=== PATIENT | female | born 1950 | race Caucasian/White ===

== ENCOUNTER 2016-07-10 11:35 | Inpatient (IN) | payer MEDICARE ==
[~2016-07-10] VITALS: Ht 162.6 cm; Wt 60.5 kg
[2016-07-10] VITALS (8 sets, daily range): BP systolic 125–156; BP diastolic 78–91; PULSE 59–88; RESP 12–17; O2SAT 93–100
--- NOTE | 2016-07-10 11:52 | ED.REPORT ---
HPI-General Illness Date of Service July 10, 2016 ED Provider: DaljitKirill Adalid DO 66 y/o female with no reported hx presents to the ED vis EMS due to LOC. As per the EMS, the pt was found on the floor by her friend and had been incontinent. Pt was alert to self, time and place but confused on what happened prior to LOC. The EMS also noticed minimal food in her house, piles of stool around the house and a couple of eviction notices. She is severely disoriented, emaciated, dehydrated and malodorous. The pt was recently seen at [facility] for GI bleed. Pt is currently prescribed Famotidine 20mg Nursing Notes Stated Complaint: FAILURE TO THRIVE Chief Complaint: General Complaint Nursing Notes Reviewed: Yes Allergies: Coded Allergies: No Known Allergies (Unverified , 07/10/16) General Time Seen by MD: 11:51 Chief Complaint Other (LOC) Hx Obtained From: Patient Arrived By: Ambulance Sudden in Onset?: Yes Onset Occurred: Just prior to arrival Symptom Duration: Since onset Severity: Current: No pain currently Severity: Maximum: No pain Recent Healthcare: No recent doctor visit Similar Sx Previous: No Past Medical History Past Medical History none reported Past Surgical History none reported Smoking History Current Every Day Smoker Social History Alcohol Use: 1-3 per day Ambulatory Status Independent Review of Systems Unable to Obtain ROS Mental status Full Review of Systems Neurologic: Denies: Problem walking Complete sys rev & neg: except as marked. Physical Exam Vital Signs Vital Signs Date Time Temp Pulse Resp B/P Pulse Ox O2 Delivery O2 Flow Rate FiO2 07/10/16 14:18 70 16 140/79 100 Room Air 07/10/16 12:56 36.3 72 17 156/80 100 Room Air 07/10/16 12:32 86 12 146/78 99 Room Air 07/10/16 11:45 36.4 88 15 145/91 93 Room Air Initial VS: Reviewed Neck: Supple, Non-tender, Full range of motion Respiratory: Breath sounds normal, Clear to auscultation, No respiratory distress Cardiovascular: Regular rate & rhythm, Heart sounds normal, Intact distal pulses Abdomen / GI: Soft, Non-tender, No guarding, No rebound, No distention Extremities: Vascular intact, Neuro intact, No swelling, No tenderness Skin: Warm, Dry, No cyanosis General/Constitutional: Awake, Cooperative Alertness: Positive: Confused Distress / Hydration: Positive: Dehydration severe Head / Eyes: Atraumatic, Normocephalic, PERRL Uncooperative for extraocular movement exams. Abdomen: Atraumatic, Soft, Non-tender, No guarding, No rebound Rectum / Perineum: Atraumatic Positive guaiac. Neurologic: Oriented X3, Speech NL, No motor deficits, No sensory deficits No Asterixis NIH scale = 0 Psychiatric: Not suicidal, Not homicidal Odd affect Interpretation & Diagnostics Lab Results Interpretation Result Diagram: 07/10/16 1403 07/10/16 1233 Test 07/10/16 12:33 07/10/16 12:45 07/10/16 13:00 07/10/16 14:03 White Blood Count 9.9th/mm3 (3.8-10.1) Red Blood Count 5.41mil/mm3 (3.90-5.20) Mean Corpuscular Volume 98.2fL (81-100) Mean Corpuscular Hemoglobin 35.1pg (27.0-35.0) Mean Corpuscular Hemoglobin Concent 35.8% (32.0-37.0) Red Cell Distribution Width 14.3% (12.3-15.4) Platelet Count 282bil/L (150-400) Neutrophils (%) (Auto) 91.1% (40-74) Lymphocytes (%) (Auto) 5.2% (14-46) Monocytes (%) (Auto) 3.2% (4-12) Eosinophils (%) (Auto) 0% (0-5) Basophils (%) (Auto) 0.2% (0-3) Prothrombin Time 10.0sec (8.1-12.5) Prothromb Time International Ratio 0.94ratio Sodium Level 142mEq/L (134-144) Potassium Level 2.7mEq/L (3.5-5.2) Chloride Level 101mEq/L (97-108) Carbon Dioxide Level 17mmol/L (18-29) Blood Urea Nitrogen 40mg/dL (8-27) Creatinine 0.60mg/dL (0.57-1.00) Estimat Glomerular Filtration Rate 142mL/min (>59) Glucose Level 149mg/dL (60-99) Lactic Acid Level 2.5mmol/L (0.4-2.0) Calcium Level 8.9mg/dL (8.5-10.1) Magnesium Level 1.8mg/dL (1.6-2.6) Total Bilirubin 1.0mg/dL (0.0-1.2) Aspartate Amino Transf (AST/SGOT) 32U/L (0-50) Alanine Aminotransferase (ALT/SGPT) 27U/L (0-32) Alkaline Phosphatase 104U/L (25-165) Ammonia 37ug/dL (18-53) Total Creatine Kinase 54U/L (21-215) Troponin T < 0.010ug/L (0.0-0.011) Total Protein 6.1g/dL (6.4-8.4) Albumin 3.2g/dL (3.4-5.0) Procalcitonin 0.06ng/mL (0.00-0.08) Thyroid Stimulating Hormone (TSH) 0.972uIU/mL (0.450-4.500) Alcohols < 10mg/dL (0-10) Urine Color Lynda (YELLOW) Urine Appearance Clear (CLEAR,HAZY) Urine pH 6.0 (5.0-8.0) Urine Specific [place] 1.025 (1.003-1.035) Urine Protein Tracemg/dL (NEG,TRACE) Urine Glucose (UA) Negativemg/dL (NEGATIVE) Urine Ketones 40mg/dL (NEGATIVE) Urine Occult Blood Trace (NEGATIVE) Urine Nitrite Negative (NEGATIVE) Urine Bilirubin Negative (NEGATIVE) Urine Ictotest Negative (Negative) Urine Urobilinogen Normalmg/dL (NORMAL) Urine Leukocyte Esterase Negative (NEGATIVE) Urine RBC 0-2/hpf (0-2) Urine WBC 0-5/hpf (0-5) Urine Epithelial Cells Many/hpf (NONE-MOD) Urine Crystals None seen (NONE SEEN) Urine Bacteria Few/hpf (NONE-FEW) Urine Hyaline Casts 5/20/lpf (NONE) Urine Granular Casts None seen (NONE SEEN) Urine Waxy Casts None seen (NONE SEEN) Urine Red Blood Cell Casts None seen (NONE SEEN) Urine White Blood Cell Casts None seen (NONE SEEN) Urine Mucus Present (None Seen) Urine Trichomonas None seen (NONE SEEN) Urine Yeast None (NONE SEEN) Urinalysis Comment None Urine Culture Reflexed Not indicated Hemoglobin 16.1g/dL (12.0-15.6) Hematocrit 47.2% (35.0-46.0) ECG Interpretation ECG Interpretation: Normal sinus rhtyhm. Rate 70. Probable left atrial enlargement. Time: 12:26 Interpreted by: ED physician X-Ray Chest Interpretation Chest Xray Interpretation: IMPRESSION: No acute process. Dictated by: Charbel Alcantar M.D. on 07/10/2016 at 13:20 Approved by: Charbel Alcantar M.D. on 07/10/2016 at 13:21 View: Portable, 1 view Interpretation / Wet Read by: Interpret - Radiologist CT Head Interpretation IMPRESSION: No acute intracranial abnormality. Dictated by: Charbel Alcantar M.D. on 07/10/2016 at 12:30 Approved by: Charbel Alcantar M.D. on 07/10/2016 at 12:30 Study: Head CT no contrast Interpretation / Wet Read by: Interpret - Radiologist Re-Eval/Medical Decision Med Decision/Clinical Course Continued confusion, appears to be severely dehydrated. Does not appear to be meningitis, no obvious other septic or infectious parameters. Patient does have brown stool with a positive guaiac, may have some GI bleeding. Patient will be admitted. Time of Eval: 14:04 Re-Evaluation/Progress Note: Pt rechecked. Pt is still disoriented and confused. Counseled Regarding: Diagnosis, Lab results, Need for admission Discharge & Departure Primary Impression: Confusion Additional Impressions: Dehydration Hypokalemia GI bleed Disposition: ADMITTED TO HOSPITAL Discharge Condition All VS Reviewed: Yes Referrals: [facility] Scribe Attestation Portions of this note were transcribed by Nelly Smith. I, , personally performed the history, physical exam and medical decision-making;I reviewed and confirmed the accuracy of the information in the transcribed note. Signed by Nikko Mayer. 07/10/16 TIME copies to: [facility] Kirill Bocanegra DO July 10, 2016 11:52 Nelly Smith July 10, 2016 12:10
[2016-07-10] MEDS ORDERED: 0.9% Sodium Chloride 1,000 ML IV ONE (11:59)
[2016-07-10] MEDS ORDERED: 0.9% Sodium Chloride 500 ML IV ONE (12:00)
--- NOTE | 2016-07-10 12:31 | DRSVH ---
PROCEDURE: CT BRAIN WITHOUT CONTRAST ([id number]) INDICATIONS: AMS TECHNIQUE: Noncontrast 4.5 mm thick angled axial sections acquired from the foramen magnum to the vertex, with c oronal reformats. COMPARISON: None. FINDINGS: Image quality: Excellent. CSF spaces: Basal cisterns are patent. No extra-axial fluid collections. The ventricles are symmet jesse in size and shape. Brain: No intracranial bleeds or masses. There is cerebral volume loss for age, with resultant vent ricular and sulcal prominence. There are periventricular and deep white matter chronic small vessel ischemic changes. There is intracranial internal carotid artery atherosclerosis. Skull and face: Calvarium and visualized facial bones appear intact, without suspicious lesions. Sinuses: Visualized sinuses and mastoids are clear. IMPRESSION: No acute intracranial abnormality. Dictated by: Charbel Alcantar M.D. on 07/10/2016 at 12:30 Approved by: Charbel Alcantar M.D. on 07/10/2016 at 12:30
[2016-07-10 12:49] LABS: BASOPHILS % (AUTO) 0.2 % (0-3); EOSINOPHILS % (AUTO) 0 % (0-5); MONOCYTES % (AUTO) 3.2 % (4-12); Mean Corpuscular Hemoglobin 35.1 pg (27.0-35.0); Mean Corpuscular Volume 98.2 fL (81-100); NEUTROPHILS % (AUTO) 91.1 % (40-74); Platelet Count 282 bil/L (150-400)
[2016-07-10 13:06] LABS: INR 0.94 ratio
--- NOTE | 2016-07-10 13:22 | DRSVH ---
PROCEDURE: X-RAY CHEST ONE VIEW, PORTABLE ([id number]) INDICATIONS: weakness TECHNIQUE: One view of the chest was acquired. COMPARISON: None. FINDINGS: Surgical changes and devices: None. Lungs and pleura: No pleural effusions or pneumothorax. Lungs are clear. Mediastinum: Mediastinal contours appear normal. Heart size is normal. Bones and chest wall: No suspicious bony lesions. Overlying soft tissues appear unremarkable. IMPRESSION: No acute process. Dictated by: Charbel Alcantar M.D. on 07/10/2016 at 13:20 Approved by: Charbel Alcantar M.D. on 07/10/2016 at 13:21
[2016-07-10 13:27] LABS: TROPONIN T < 0.010 ug/L (0.0-0.011)
[2016-07-10 13:34] LABS: Creatine Kinase 54 U/L (21-215); Magnesium 1.8 mg/dL (1.6-2.6)
[2016-07-10 13:41] LABS: COLOR,URINE AMBER (YELLOW)
[2016-07-10 13:42] LABS: APPEARANCE,URINE CLEAR (CLEAR,HAZY); OCCULT BLOOD,URINE TRACE (NEGATIVE); UROBILINOGEN,URINE NORMAL (NORMAL)
[2016-07-10 13:43] LABS: ICTOTEST,URINE NEGATIVE (Negative)
[2016-07-10] MEDS ORDERED: Potassium Chloride 20 mEq/15 mL 15mL Oral Soln PO ONE (13:45)
[2016-07-10] MEDS ORDERED: KCl 40 mEq/D5W 500 mL 40 MEQ in IV Premix 1 EACH IV ONE (13:45)
[2016-07-10] MEDS ORDERED: 0.9% Sodium Chloride 1,000 ML IV SCH ×2 (13:45→14:49)
[2016-07-10] MEDS ORDERED: Pantoprazole 4 mg/mL 10 mL Inj IVPUSH ONE (14:00)
[2016-07-10] MEDS ORDERED: Pantoprazole Inj 80 MG, Pharmacy To Mix 1 EA in 0.9% Sodium Chloride 80 ML IV ONE ×2 (14:00)
[2016-07-10] MEDS ORDERED: Ondansetron 2 mg/mL 2 mL Inj IVPUSH PRN ×2 (14:50→16:45)
[2016-07-10] MEDS ORDERED: Alum-Mag Hydrox-Simeth 30 mL Suspension PO PRN ×2 (14:50→16:45)
[2016-07-10] MEDS ORDERED: FAMO20TA4 PO (15:07)
[2016-07-10] MEDS ORDERED: ALBU18HF PO (15:07)
[2016-07-10] MEDS ORDERED: Polyethylene Glycol (PEG) 17 Gm Powder PO PRN (16:45)
[2016-07-10] MEDS: Lactated Ringer's 1,000 ML IV SCH ×2 (16:45→23:40)
[2016-07-10] MEDS ORDERED: Thiamine Inj 100 MG, Folic Acid Inj 1 MG, Magnesium Sulfate 50% Inj 2 GM, Multivitamins... IV ONE ×5 (16:45)
[2016-07-10] MEDS ORDERED: Potassium Chloride 20 mEq SR Tablet PO ONE (16:45)
--- NOTE | 2016-07-10 17:04 | PCM.HPMED ---
Subjective Date of Service July 10, 2016 Primary Provider: Admitting Physician: Augie Campuzano MD Primary Care Physician: Nopcp Attending Physician: Augie Campuzano MD Chief Complaint: confusion History of Present Illness: 66yo lady with no reported medical hx. hx obtained from available medical records, er physician, bedside nurse, patient apparently neighbours called bc they were concerned about her. ems arrived to the house to find her crawling on the floor with feces around the floor. there was apparently minimal food in the house and eviction notices. she tells me she feels weak and fell 3 weeks ago and has b/l hip pain but can walk ok with a walker. she is not sure why she is here now. she is concerned about where her dog is. she denies h/a, neck pain, n/v/d, abd pain, fevers, chills, dyspnea, cough, recent illness. feels thirsty. she tells me she drinks white whine daily. multiple times. asking if she could have some now. Review of Systems: Positive Review of Symptoms mentioned and elaborated on in HPI. Head: Denies H/A, trauma, loss of consciousness. Eyes: Denies visual loss, diplopia. Ears: Denies: deafness, tinnitis, discharge, pain Nose: Denies discharge, obstruction, epistaxis Mouth: Denies sores, gingival bleeding, jaw pain Neck: Denies stiffness, issues swallowing. Respiratory: Denies dyspnea, cough, sputum. Cardiovascular:Denies CP, palpitations, orthopnea, peripheral edema Gastrointestinal: Denies melena, abd pain, n/v/d Genitourinary: Denies dysuria, discharge. Skin: Denies: lesions, rashes, pruritus. Musculoskeletal: see hpi Neuro: Denies numbness, tingling, weakness. Psyc: Currently denies feelings of anxiety, depression. Allergies Coded Allergies: No Known Allergies (Unverified , 07/10/16) Home Medications see med rec PMH denies Surgical History denies Family History denies Social History Hx Alcohol Use: Yes Alcoholic Drinks Per Day: 3 glasses of wine Hx Substance Use: No Smoking Status: Current Every Day Smoker Exam Vital Signs Vital Sign - Last Date Time Temp Pulse Resp B/P Pulse Ox O2 Delivery O2 Flow Rate FiO2 07/10/16 16:54 62 07/10/16 16:01 36.3 14 139/80 100 Room Air Exam General: No acute distress. Awake, alert. Head: Normocephalic, atraumatic. Eyes: White sclera. Conjunctiva non-injected. Mouth & Throat: No Bleeding. No erythema, lesions, exudates visualized. dry mucus membranes Neck: No tender adenopathy. Trachea midline. Respiratory: Clear to auscultation bilaterally. Symmetric chest expansion. Regular work of breathing without use of accessory muscles. Cardiovascular: S1, S2. Regular rate and rhythm without murmurs, rubs or gallops. Pulses 2+ equal bilaterally. Abdomen: Normal bowel sounds x4 quadrants. Soft, non-tender, non-distended. Extremities: Intact. no joint effusions. no lower extremity tenderness, swelling, erythema or increased warmth. some tenderness hips b/l. range of motion ok. Skin: Intact, no lesions, no rash. dry Neurologic: Awake, alert No focal deficits. Psychiatric: Cooperative. tangential. cannot say correct date or season of the year. knows her name not the exact location of the hospital or her home. can identify current president but not any others. not oriented to purpose. Lab and Diagnostics Result Diagram: 07/10/16 1403 07/10/16 1233 X-Rays, CTs and MRIs Date of Service: 07/10/16 3036 PROCEDURE: CT BRAIN WITHOUT CONTRAST ([id number]) INDICATIONS: AMS TECHNIQUE: Noncontrast 4.5 mm thick angled axial sections acquired from the foramen magnum to the vertex, with coronal reformats. COMPARISON: None. FINDINGS: Image quality: Excellent. CSF spaces: Basal cisterns are patent. No extra-axial fluid collections. The ventricles are symmetric in size and shape. Brain: No intracranial bleeds or masses. There is cerebral volume loss for age , with resultant ventricular and sulcal prominence. There are periventricular and deep white matter chronic small vessel ischemic changes. There is intracranial internal carotid artery atherosclerosis. Skull and face: Calvarium and visualized facial bones appear intact, without suspicious lesions. Sinuses: Visualized sinuses and mastoids are clear. IMPRESSION: No acute intracranial abnormality. Dictated by: Charbel Alcantar M.D. on 07/10/2016 at 12:30 Approved by: Charbel Alcantar M.D. on 07/10/2016 at 12:30 Date of Service: 07/10/16 8925 PROCEDURE: X-RAY CHEST ONE VIEW, PORTABLE ([id number]) INDICATIONS: weakness TECHNIQUE: One view of the chest was acquired. COMPARISON: None. FINDINGS: Surgical changes and devices: None. Lungs and pleura: No pleural effusions or pneumothorax. Lungs are clear. Mediastinum: Mediastinal contours appear normal. Heart size is normal. Bones and chest wall: No suspicious bony lesions. Overlying soft tissues appear unremarkable. IMPRESSION: No acute process. Dictated by: Charbel Alcantar M.D. on 07/10/2016 at 13:20 Approved by: Charbel Alcantar M.D. on 07/10/2016 at 13:21 Additional Diagnostics: hemocult reported to be + in er Assessment & Plan -- altered mental status -- dehydration -- electrolyte abdnormalities - hypoK -- alcoholism -- elevated lactic acid attempt to find and correct reversible causes of mental status changes. no obvious source / evidence of infection at this time cont to monitor. ivf. replete potassium ciwa protocol thiamine iv. rpr, hiv, folate, b12 mri brain further w/u, treatment as indicated. social service worker, case management consults. -- b/l hip pain xray pelvis, hips -- positive hemoccult reported in er cont to monitor cbc. no signs of active bleeding now. f/e/n: ivf. monitor electrolytes dispo: admit to inpt tele with expected LOS >2 midnights. VTE Prophylaxis: Sub-Q Enoxaparin VTE Mechanical Devices: Intermittant Pneumatic CD Resuscitation Status: CPR: Attempt Resuscitation Augie Campuzano MD July 10, 2016 17:04
--- NOTE | 2016-07-10 17:57 | DRSVH ---
PROCEDURE: X-RAY PELVIS WITH BILATERAL HIPS, 3 VIEWS INDICATIONS: bilateral hip pain TECHNIQUE: AP pelvis with lateral view(s) of the bilateral hip(s). COMPARISON: None. FINDINGS: Bones: No fractures or dislocations. Pelvic ring appears intact. No suspicious bony lesions. Soft tissues: The visualized bowel gas pattern is normal. No suspicious soft tissue calcifications. IMPRESSION: No acute fracture. No osseous lesion. If clinical suspicion and/or symptoms persist, fur ther assessment with repeat plainfilms, or advanced imaging (e.g., CT, MRI, or bone scan) may be help ful for further assessment. Dictated by: Charbel Alcantar M.D. on 07/10/2016 at 17:55 Approved by: Charbel Alcantar M.D. on 07/10/2016 at 17:55
[2016-07-10] MEDS: Thiamine Inj 500 MG in Dextrose 5% 50 ML IV SCH (20:47)
[2016-07-11] VITALS (7 sets, daily range): BP systolic 99–124; BP diastolic 61–78; PULSE 58–69; RESP 16–18; O2SAT 98–99
[2016-07-11 05:16] LABS: BASOPHILS % (AUTO) 0.4 % (0-3); EOSINOPHILS % (AUTO) 0.1 % (0-5); MONOCYTES % (AUTO) 7.2 % (4-12); Mean Corpuscular Hemoglobin 34.6 pg (27.0-35.0); Mean Corpuscular Volume 101.6 fL (81-100); NEUTROPHILS % (AUTO) 67.8 % (40-74); Platelet Count 223 bil/L (150-400)
[2016-07-11 05:54] LABS: Magnesium 2.2 mg/dL (1.6-2.6); Phosphorus 1.8 mg/dL (2.5-4.9)
[2016-07-11] MEDS: Thiamine Inj 500 MG in Dextrose 5% 50 ML IV SCH ×2 (10:27→16:05)
[2016-07-11] MEDS: Multivit-Miner-Folic Acid-Iron Tablet PO SCH (10:27)
[2016-07-11] MEDS: Lactated Ringer's 1,000 ML IV SCH ×2 (10:29→22:39)
--- NOTE | 2016-07-11 12:09 | PCM.PNMED ---
Subjective Date of Service July 11, 2016 Subjective doing ok today. does not have any complaints. denies pain, chest pain, dyspnea, cough, abd pain, n/v/d, h/a, neck pain, fevers , chills. Exam Vital Signs Vital Sign - Last Date Time Temp Pulse Resp B/P Pulse Ox O2 Delivery O2 Flow Rate FiO2 07/11/16 10:03 36.8 64 18 99/61 98 Room Air Intake and Output 07/10/16 07/10/16 07/11/16 Cumulative From/Thru 15:00 23:00 07:00 07/10/16 11:45 - 07/11/16 06:27 Intake Total 2180 ml 1214 ml 912 ml 4306 ml Output Total 100 ml 250 ml 350 ml Balance 2180 ml 1114 ml 662 ml 3956 ml Intake Oral 100 ml 318 ml 418 ml IV Total 2180 ml 1114 ml 594 ml 3888 ml Output Urine Total 100 ml 250 ml 350 ml # Bowel Movements 0 0 Exam gen:no acute distress lungs cta heart rrr abd soft,nontender, nondistended ext no le edema, erythema, tenderness neuro: no gross deficits psyc: still tangential comments and scattered thinking. aox2 IVs and Medications Medications Reviewed: Medications were reviewed in detail Lab and Diagnostics Result Diagram: 07/11/16 0500 07/11/16 0500 X-Rays, CTs and MRIs Date of Service: 07/10/16 1159 PROCEDURE: CT BRAIN WITHOUT CONTRAST ([id number]) INDICATIONS: AMS TECHNIQUE: Noncontrast 4.5 mm thick angled axial sections acquired from the foramen magnum to the vertex, with coronal reformats. COMPARISON: None. FINDINGS: Image quality: Excellent. CSF spaces: Basal cisterns are patent. No extra-axial fluid collections. The ventricles are symmetric in size and shape. Brain: No intracranial bleeds or masses. There is cerebral volume loss for age , with resultant ventricular and sulcal prominence. There are periventricular and deep white matter chronic small vessel ischemic changes. There is intracranial internal carotid artery atherosclerosis. Skull and face: Calvarium and visualized facial bones appear intact, without suspicious lesions. Sinuses: Visualized sinuses and mastoids are clear. IMPRESSION: No acute intracranial abnormality. Dictated by: Charbel Alcantar M.D. on 07/10/2016 at 12:30 Approved by: Charbel Alcantar M.D. on 07/10/2016 at 12:30 Date of Service: 07/10/16 1159 PROCEDURE: X-RAY CHEST ONE VIEW, PORTABLE ([id number]) INDICATIONS: weakness TECHNIQUE: One view of the chest was acquired. COMPARISON: None. FINDINGS: Surgical changes and devices: None. Lungs and pleura: No pleural effusions or pneumothorax. Lungs are clear. Mediastinum: Mediastinal contours appear normal. Heart size is normal. Bones and chest wall: No suspicious bony lesions. Overlying soft tissues appear unremarkable. IMPRESSION: No acute process. Dictated by: Charbel Alcantar M.D. on 07/10/2016 at 13:20 Approved by: Charbel Alcantar M.D. on 07/10/2016 at 13:21 Additional Diagnostics hemocult reported to be + in er Assessment & Plan -- altered mental status -- dehydration -- electrolyte abdnormalities - hypoK -- alcoholism -- elevated lactic acid attempt to find and correct reversible causes of mental status changes. no obvious source / evidence of infection at this time cont to monitor. ivf. replete potassium ciwa protocol thiamine iv. rpr, hiv, folate, b12 still pending. mri brain still pending further w/u, treatment as indicated. school social worker, case management consults. may need psyc evaluation. -- b/l hip pain xray pelvis, hips no fx. pain improved. physical therapy eval -- positive hemoccult reported in er cont to monitor cbc. no signs of active bleeding now. f/e/n: ivf. monitor electrolytes dispo: pending w/u labs, mri. school social worker, possible psyc eval. VTE Prophylaxis: Sub-Q Enoxaparin VTE Mechanical Devices: Intermittant Pneumatic CD Resuscitation Status: CPR: Attempt Resuscitation Augie Campuzano MD July 11, 2016 12:09
--- NOTE | 2016-07-11 13:53 | DRSVH ---
PROCEDURE: MRI BRAIN WITHOUT CONTRAST ([id number]) INDICATIONS: altered mental status. TECHNIQUE: Non-contrast axial T1 spin echo, axial T2 fast spin echo, sagittal and axial FLAIR, coronal T2 fast s pin echo, axial gradient echo, axial diffusion and ADC through the brain. COMPARISON: [facility], CT, CT BRAIN WO CON, 07/10/2016, 12:06. FINDINGS: Image quality: Excellent. CSF spaces: Ventricles appear symmetric in size and shape. Basal cisterns are patent. No extra-axi al fluid collections. Brain: No intracranial bleeds or mass effects. There is cerebral volume loss for age. There are pe riventricular and deep white matter chronic small vessel ischemic changes. Brainstem appears normal. Diffusion-weighted images show no acute ischemic insults. No chronic ischemic insults. Normal int ravascular flow voids are present. Skull and face: Calvarial bone marrow is normal in signal. Orbits are normal. Sinuses: Sinuses and mastoids are clear. IMPRESSION: 1. No acute intracranial process. 2. Moderate atrophy and chronic microvascular ischemic changes. Dictated by: Evelyn Miranda M.D. on 07/11/2016 at 13:49 Approved by: Evelyn Miranda M.D. on 07/11/2016 at 13:52
[2016-07-12 05:33] LABS: BASOPHILS % (AUTO) 0.8 % (0-3); EOSINOPHILS % (AUTO) 0.6 % (0-5); MONOCYTES % (AUTO) 8.1 % (4-12); Mean Corpuscular Hemoglobin 34.1 pg (27.0-35.0); Mean Corpuscular Volume 101.1 fL (81-100); NEUTROPHILS % (AUTO) 51.9 % (40-74); Platelet Count 210 bil/L (150-400)
[2016-07-12 05:50] VITALS: BP 101/64; PULSE 64; RESP 16; O2SAT 97
[2016-07-12 05:54] LABS: Magnesium 1.8 mg/dL (1.6-2.6); Phosphorus 2.3 mg/dL (2.5-4.9)
[2016-07-12 07:14] LABS: Vitamin B12 647 pg/mL (211-946)
[2016-07-12 08:14] VITALS: BP 101/66; RESP 18; O2SAT 98
--- NOTE | 2016-07-12 09:12 | PCM.PNMED ---
Subjective Date of Service July 12, 2016 Subjective Much more alert. No headache, chest pain, cough, dyspnea, abdomen pain or blood in stool. Exam Vital Signs Vital Sign - Last Date Time Temp Pulse Resp B/P Pulse Ox O2 Delivery O2 Flow Rate FiO2 07/12/16 08:14 36.6 18 101/66 98 Room Air 07/12/16 05:50 64 Intake and Output 07/11/16 07/11/16 07/12/16 Cumulative From/Thru 15:00 23:00 07:00 07/10/16 11:45 - 07/12/16 06:18 Intake Total 1102 ml 714 ml 1498 ml 7620 ml Output Total 1000 ml 800 ml 2150 ml Balance 1102 ml -286 ml 698 ml 5470 ml Intake Oral 480 ml 100 ml 998 ml IV Total 1102 ml 234 ml 1398 ml 6622 ml Output Urine Total 1000 ml 800 ml 2150 ml # Bowel Movements 0 IVs and Medications Medications Reviewed: Medications were reviewed in detail Lab and Diagnostics Result Diagram: 07/12/16 0445 07/12/16 0445 X-Rays, CTs and MRIs Date of Service: 07/10/16 896 PROCEDURE: CT BRAIN WITHOUT CONTRAST ([id number]) INDICATIONS: AMS TECHNIQUE: Noncontrast 4.5 mm thick angled axial sections acquired from the foramen magnum to the vertex, with coronal reformats. COMPARISON: None. FINDINGS: Image quality: Excellent. CSF spaces: Basal cisterns are patent. No extra-axial fluid collections. The ventricles are symmetric in size and shape. Brain: No intracranial bleeds or masses. There is cerebral volume loss for age , with resultant ventricular and sulcal prominence. There are periventricular and deep white matter chronic small vessel ischemic changes. There is intracranial internal carotid artery atherosclerosis. Skull and face: Calvarium and visualized facial bones appear intact, without suspicious lesions. Sinuses: Visualized sinuses and mastoids are clear. IMPRESSION: No acute intracranial abnormality. Dictated by: Charbel Alcantar M.D. on 07/10/2016 at 12:30 Approved by: Charbel Alcantar M.D. on 07/10/2016 at 12:30 Date of Service: 07/10/16 9895 PROCEDURE: X-RAY CHEST ONE VIEW, PORTABLE ([id number]) INDICATIONS: weakness TECHNIQUE: One view of the chest was acquired. COMPARISON: None. FINDINGS: Surgical changes and devices: None. Lungs and pleura: No pleural effusions or pneumothorax. Lungs are clear. Mediastinum: Mediastinal contours appear normal. Heart size is normal. Bones and chest wall: No suspicious bony lesions. Overlying soft tissues appear unremarkable. IMPRESSION: No acute process. Dictated by: Charbel Alcantar M.D. on 07/10/2016 at 13:20 Approved by: Charbel Alcantar M.D. on 07/10/2016 at 13:21 Additional Diagnostics hemocult reported to be + in er Assessment & Plan 1. Metabolic encephalopthy, POA. Much improved. Follow clinically. 2. Alcohol dependence, POA. No evidence of withdrawal today. 3. Volume depletion, POA. Continue IV fluids. 4. Lactic acidosis, POA. Resolved. -- altered mental status -- dehydration -- electrolyte abdnormalities - hypoK -- alcoholism -- elevated lactic acid attempt to find and correct reversible causes of mental status changes. no obvious source / evidence of infection at this time cont to monitor. ivf. replete potassium ciwa protocol thiamine iv. rpr, hiv, folate, b12 still pending. mri brain still pending further w/u, treatment as indicated. medical social worker, case management consults. may need psyc evaluation. -- b/l hip pain xray pelvis, hips no fx. pain improved. physical therapy eval -- positive hemoccult reported in er cont to monitor cbc. no signs of active bleeding now. f/e/n: ivf. monitor electrolytes dispo: pending w/u labs, mri. medical social worker, possible psyc eval. VTE Prophylaxis: Sub-Q Enoxaparin VTE Mechanical Devices: Intermittant Pneumatic CD Resuscitation Status: CPR: Attempt Resuscitation Adelfo Carrasco MD July 12, 2016 09:12
[2016-07-12] MEDS: Thiamine Inj 500 MG in Dextrose 5% 50 ML IV SCH ×3 (09:47→20:42)
[2016-07-12] MEDS: Lactated Ringer's 1,000 ML IV SCH ×2 (09:47→20:36)
[2016-07-12] MEDS: Multivit-Miner-Folic Acid-Iron Tablet PO SCH (09:51)
--- NOTE | 2016-07-12 11:35 | PCM.PNMED ---
Subjective Date of Service July 12, 2016 Subjective She is more alert today. She denies confusion although she cannot state where she is or what year it is. She denies hallucinations. No anxiety or tremor. No chest pain cough shortness of breath or abdominal pain. No nausea, vomiting or diarrhea. No overnight events Exam Vital Signs Vital Sign - Last Date Time Temp Pulse Resp B/P Pulse Ox O2 Delivery O2 Flow Rate FiO2 07/12/16 08:14 36.6 18 101/66 98 Room Air 07/12/16 05:50 64 Intake and Output 07/11/16 07/11/16 07/12/16 Cumulative From/Thru 15:00 23:00 07:00 07/10/16 11:45 - 07/12/16 06:18 Intake Total 1102 ml 714 ml 1498 ml 7620 ml Output Total 1000 ml 800 ml 2150 ml Balance 1102 ml -286 ml 698 ml 5470 ml Intake Oral 480 ml 100 ml 998 ml IV Total 1102 ml 234 ml 1398 ml 6622 ml Output Urine Total 1000 ml 800 ml 2150 ml # Bowel Movements 0 Exam Alert and oriented to self and the hospital but not the year or specific name of the hospital, no distress. Fluent speech Anicteric sclera. Lungs are clear with normal rate and effort Heart is regular without murmur gallop or rub Abdomen soft nontender, flat Extremities are free of edema. Skin is free of rash or lesions. IVs and Medications Medications Reviewed: Medications were reviewed in detail Lab and Diagnostics Result Diagram: 07/12/165 07/12/16 0445 X-Rays, CTs and MRIs Date of Service: 07/10/16 1159 PROCEDURE: CT BRAIN WITHOUT CONTRAST ([id number]) INDICATIONS: AMS TECHNIQUE: Noncontrast 4.5 mm thick angled axial sections acquired from the foramen magnum to the vertex, with coronal reformats. COMPARISON: None. FINDINGS: Image quality: Excellent. CSF spaces: Basal cisterns are patent. No extra-axial fluid collections. The ventricles are symmetric in size and shape. Brain: No intracranial bleeds or masses. There is cerebral volume loss for age , with resultant ventricular and sulcal prominence. There are periventricular and deep white matter chronic small vessel ischemic changes. There is intracranial internal carotid artery atherosclerosis. Skull and face: Calvarium and visualized facial bones appear intact, without suspicious lesions. Sinuses: Visualized sinuses and mastoids are clear. IMPRESSION: No acute intracranial abnormality. Dictated by: Charbel Alcantar M.D. on 07/10/2016 at 12:30 Approved by: Charbel Alcantar M.D. on 07/10/2016 at 12:30 Date of Service: 07/10/16 1159 PROCEDURE: X-RAY CHEST ONE VIEW, PORTABLE ([id number]) INDICATIONS: weakness TECHNIQUE: One view of the chest was acquired. COMPARISON: None. FINDINGS: Surgical changes and devices: None. Lungs and pleura: No pleural effusions or pneumothorax. Lungs are clear. Mediastinum: Mediastinal contours appear normal. Heart size is normal. Bones and chest wall: No suspicious bony lesions. Overlying soft tissues appear unremarkable. IMPRESSION: No acute process. Dictated by: Charbel Alcantar M.D. on 07/10/2016 at 13:20 Approved by: Charbel Alcantar M.D. on 07/10/2016 at 13:21 Additional Diagnostics hemocult reported to be + in er Assessment & Plan 1. Metabolic encephalopthy, POA. Much improved. Follow clinically. 2. Alcohol dependence, POA. No evidence of withdrawal today. Continue all call call protocol. 3. Volume depletion, POA. Continue IV fluids. 4. Lactic acidosis, POA. Resolved. 5. positive hemoccult reported in er cont to monitor cbc. no signs of active bleeding now. 6. One positive blood culture, gram-positive cocci. This may represent contaminant. We will simply follow off antibiotics for now. 7. Hypokalemia, not POA. We will replete today and follow. The patient appears to be improving clinically. We will follow closely and have physical therapy evaluate her. We will then begin discharge planning. VTE Prophylaxis: Sub-Q Enoxaparin VTE Mechanical Devices: Intermittant Pneumatic CD Resuscitation Status: CPR: Attempt Resuscitation Adelfo Carrasco MD July 12, 2016 11:35
[2016-07-12] MEDS ORDERED: Potassium Chloride 20 mEq SR Tablet PO ONE (11:53)
--- NOTE | 2016-07-12 15:43 | CONS ---
[address] [address] CONSULTATION REPORT PATIENT: ANKUSH PATRICK : 1950 MR#: [id number] ADMIT: 07/10/2016 JOB ID: [id number] DATE OF SERVICE: 07/12/2016 PSYCHIATRIC CONSULTATION: IDENTIFICATION: The patient is a 66-year-old white female. She lives independently and receives social security. She reports living in [place]. REASON FOR ADMISSION: The patient presented to the ED via [facility] due to loss of consciousness. She was found on the floor by her friend and had been incontinent of urine and stool. She was admitted to work up suspected metabolic encephalopathy. HISTORY OF PRESENT ILLNESS: I was asked to consult on the patient regarding alteration of mental status. I met with her for a 60 minute evaluation and reviewed course and records kept by [facility]. Client's main issue is failure to thrive. The condition is acute and has been developing over the last several months. Per chart notes from social work and speaking with friends, she has been struggling since she and her in May of 2016. The friends reported that she has been drinking heavily since that time. Over the past three weeks, her friends report that they would take her food but she had a difficult time eating or drinking. Over the past three weeks, she has had a marked decrease in function and when they found her, she was incontinent of feces and urine and she had stopped feeding her dog as well. When I met with her, she was very bright and was struggling to get to the bathroom and back with the help of two of the nursing staff. She is requiring a high degree of care. Client reports feeling apathetic and amotivational. She denied difficulty with mood, mostly complaining of lack of motivation and strength. She minimized her alcohol use. Her friends reported that she had a "serious alcohol problem." At present, client is presenting with no signs of emotional lability. Her reality testing is intact. She is showing mild impairment in judgment, insight. PSYCHIATRIC REVIEW OF SYSTEMS: For depression was difficult to assess given client's medical difficulties. She is reporting poor motivation and apathy but minimized other psychiatric review of systems for depression, cristopher, psychosis or substance abuse. PAST SOCIAL HISTORY: Client denies being on any medications. She denies any illnesses or allergies. PAST PSYCHIATRIC HISTORY: Client said,"Oh, freedom yes, I have struggled with depression but denied being treated." PSYCHOSOCIAL: Client reports being born in the [place] area. She graduated from high school and attended college at [employer] in [place]. 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 HISTORY OF TRAUMA: Client denied drug and alcohol use client denied. She states she had been drinking a couple glasses of red wine a night but has stopped that. Client denied suicidal ideation, suicide attempt. RELATIONSHIP HISTORY: and three times. Client could not give me the date. LEGAL HISTORY: Client denied legal problems. PHYSICAL EXAMINATION: Vital signs within normal limits. Client weak with an unsteady gait requiring two attendants to get her to the bathroom and back. MENTAL STATUS EXAMINATION: Client was disheveled, frail and thin. She had good eye contact. Her behavior was calm. Her attitude cooperative and pleasant. Speech normal rate and rhythm. Mood was euthymic. Affect congruent with normal intensity and full range. No emotional lability. Thought process: Client is having a difficult time relating a coherent history. She appears to be rationalizing to normalize recent bizarre behavior. At present, her thought process is concrete but otherwise logical and goal oriented with no signs of psychosis. Thought content: Client denied auditory or visual hallucinations. There are multiple reports in the chart over the past several weeks where she was hallucinating her ex- and kittens. I was able to observe none of this. She is focused on trying to get her health back so she can move back to home. Client was oriented to person, place and date with me. When I read the earlier notes from the ED and from her general medicine team, she had not yet cleared and was still not oriented. Her immediate short-term memory is impaired. Her long-term memory was relatively intact. Attention and concentration moderately impaired. Insight and judgment moderately impaired. Impulse control highly contained. Reality testing intact. Competence to handle current stressors appears to have been overwhelmed by current stressors. IMPRESSION: The patient is a 66-year-old white female, who has reportedly no past psychiatric history, and minimal medical problems who presents after approximately three-week history of poor p.o. food and fluid intake. By the time she got to the hospital, she was unconscious and extremely weak. She was hypokalemic and significantly confused. Client has made a significant improvement over the last 24 hours in thought clarity. She minimized stressors but her friends stated that her left her in May of 2015, and since that time, she has been drinking heavily. At present, the symptoms she is describing her apathy and amotivation. DIAGNOSIS: AXIS I 1. Depression unspecified. 2. Alcohol abuse. 3. Rule out substance induced mood disorder. 4. Rule out major depressive disorder. 5. Rule out adjustment disorder. AXIS II Defer. AXIS III Encephalopathy, hypokalemia. AXIS IV Unknown. AXIS V Current global assessment of functioning equal to 35. RECOMMENDATION: Recommend occupational therapy and physical therapy work with client to help regain previous level to see if we can help her regain some of her previous level of functioning (client was able to walk her dog and attend to events prior to last month). The patient may benefit from a trial of Prozac at 20 mg per day. However, what she certainly needs and would certainly benefit from is some grief counseling and a 12 step program to help her deal with what sounds like a fairly severe alcohol addiction. Due to the level of weakness and multiple medical complications, client will likely need halfway home before returning to her independent living. I will followup in two days. Thank you for a very interesting consult.
[2016-07-12 16:20] VITALS: BP 148/87; PULSE 65; RESP 16; O2SAT 100
[2016-07-12 20:14] VITALS: BP 131/79; PULSE 69; RESP 16; O2SAT 98
[2016-07-13 00:40] VITALS: BP 135/79; PULSE 60; RESP 20; O2SAT 97
[2016-07-13] MEDS: Lactated Ringer's 1,000 ML IV SCH ×3 (04:45→19:42)
[2016-07-13 05:30] VITALS: BP 113/64; PULSE 62; RESP 18; O2SAT 98
[2016-07-13 08:00] VITALS: BP 119/75; PULSE 69; O2SAT 97
[2016-07-13] MEDS: Multivit-Miner-Folic Acid-Iron Tablet PO SCH (08:52)
[2016-07-13] MEDS: Thiamine Inj 500 MG in Dextrose 5% 50 ML IV SCH (08:58)
[2016-07-13 12:17] VITALS: BP 130/67; PULSE 68; RESP 16; O2SAT 96
--- NOTE | 2016-07-13 12:36 | PCM.PNMED ---
Subjective Date of Service July 13, 2016 Subjective She is doing a little bit better today but still feels very weak. She did not sleep last night. She is still used and needed some direction to remember which hospital she is in. She is not sure what the year is. She does deny regular alcohol ingestion in the recent past. That being said she was found in her home to have a disarray as well as apparently (living condition. She notes that she lives alone. No overnight events. She denies any pain chest pain cough or shortness of breath. No nausea vomiting or diarrhea. Exam Vital Signs Vital Sign - Last Date Time Temp Pulse Resp B/P Pulse Ox O2 Delivery O2 Flow Rate FiO2 07/13/16 12:17 37.1 68 16 130/67 96 Room Air Intake and Output 07/12/16 07/12/16 07/13/16 Cumulative From/Thru 15:00 23:00 07:00 07/10/16 11:45 - 07/13/16 06:31 Intake Total 1479 ml 1211 ml 18488 ml Output Total 550 ml 2700 ml Balance 929 ml 1211 ml 7610 ml Intake Oral 400 ml 1398 ml IV Total 1079 ml 1211 ml 8912 ml Output Urine Total 550 ml 2700 ml # Bowel Movements 0 Exam Alert and oriented to person but not time or specific hospital. No distress. Fluent speech Anicteric sclera. Lungs are clear with normal rate and effort Heart is regular without murmur gallop or rub Abdomen soft nontender, flat Extremities are free of edema. Skin is free of rash or lesions. IVs and Medications Medications Reviewed: Medications were reviewed in detail Lab and Diagnostics Result Diagram: 07/12/16 0445 07/12/16 0445 X-Rays, CTs and MRIs Date of Service: 07/10/16 1159 PROCEDURE: CT BRAIN WITHOUT CONTRAST ([id number]) INDICATIONS: AMS TECHNIQUE: Noncontrast 4.5 mm thick angled axial sections acquired from the foramen magnum to the vertex, with coronal reformats. COMPARISON: None. FINDINGS: Image quality: Excellent. CSF spaces: Basal cisterns are patent. No extra-axial fluid collections. The ventricles are symmetric in size and shape. Brain: No intracranial bleeds or masses. There is cerebral volume loss for age , with resultant ventricular and sulcal prominence. There are periventricular and deep white matter chronic small vessel ischemic changes. There is intracranial internal carotid artery atherosclerosis. Skull and face: Calvarium and visualized facial bones appear intact, without suspicious lesions. Sinuses: Visualized sinuses and mastoids are clear. IMPRESSION: No acute intracranial abnormality. Dictated by: Charbel Alcantar M.D. on 07/10/2016 at 12:30 Approved by: Charbel Alcantar M.D. on 07/10/2016 at 12:30 Date of Service: 07/10/16 1159 PROCEDURE: X-RAY CHEST ONE VIEW, PORTABLE ([id number]) INDICATIONS: weakness TECHNIQUE: One view of the chest was acquired. COMPARISON: None. FINDINGS: Surgical changes and devices: None. Lungs and pleura: No pleural effusions or pneumothorax. Lungs are clear. Mediastinum: Mediastinal contours appear normal. Heart size is normal. Bones and chest wall: No suspicious bony lesions. Overlying soft tissues appear unremarkable. IMPRESSION: No acute process. Dictated by: Charbel Alcantar M.D. on 07/10/2016 at 13:20 Approved by: Charbel Alcantar M.D. on 07/10/2016 at 13:21 Additional Diagnostics hemocult reported to be + in er Assessment & Plan 1. Metabolic encephalopthy, POA. Much improved. Follow clinically. I believe that this is likely in part to chronic encephalopathy from her alcohol abuse. We will continue to follow her. There is no evidence of acute withdrawal syndrome at this point. 2. Alcohol dependence, POA. No evidence of withdrawal today. Continue CIWA protocol. 3. Volume depletion, POA. This is improving Continue IV fluids. 4. Lactic acidosis, POA. Resolved. 5. Urine retention. She did have a Botello placed at time of admit Mrs. removed yesterday. She then had recurrent retention and a Botello was replaced. We will start Flomax today. She will then need for Botello removal more time with postvoid residuals. 6. positive hemoccult reported in emergency department., POA. No evidence of active rectal bleeding. cont to monitor cbc. no signs of active bleeding now. 7. One positive blood culture, gram-positive cocci. This may represent contaminant. We will simply follow off antibiotics for now. 8. Hypokalemia, not POA. Her symptoms improved.. The patient appears to be improving clinically. We will follow closely and have physical therapy evaluate her. We will then begin discharge planning. The patient will have complex discharge planning. She will certainly require retirement facility placement for her debilitation and acute encephalopathy. Social work is beginning the process of finding placement at this point in time. VTE Prophylaxis: Sub-Q Enoxaparin VTE Mechanical Devices: Intermittant Pneumatic CD Resuscitation Status: CPR: Attempt Resuscitation Adelfo Carrasco MD July 13, 2016 12:36
[2016-07-13 19:51] VITALS: BP 122/76; PULSE 76; RESP 18; O2SAT 98
[2016-07-14 04:27] VITALS: BP 126/73; PULSE 66; RESP 16; O2SAT 97
[2016-07-14 05:47] LABS: Mean Corpuscular Hemoglobin 33.9 pg (27.0-35.0); Mean Corpuscular Volume 101.1 fL (81-100)
[2016-07-14] MEDS ORDERED: Potassium Chloride Inj 30 MEQ in Dextrose 5% 500 ML IV ONE (07:20)
[2016-07-14] MEDS: Multivit-Miner-Folic Acid-Iron Tablet PO SCH (08:22)
[2016-07-14] MEDS: Lactated Ringer's 1,000 ML IV SCH (10:37)
[2016-07-14 12:39] VITALS: BP 127/82; PULSE 73; RESP 12; O2SAT 97
--- NOTE | 2016-07-14 13:35 | PCM.DIMED ---
Discharge Instructions Date of Service July 14, 2016 Dates of Hospitalization July 10, 2016 at 15:07 Discharge Diagnosis Discharge Diagnosis encephalopathy Diet No restrictions Activity No restrictions Call your provider Other (confusion) Patient Instructions Follow-up with PCP in: Other (facility provider within nbext 5days. Pt going to SNF) Davy Julien MD July 14, 2016 13:35
[2016-07-14] MEDS ORDERED: Magnesium Sulf 4 Gm/100 mL H2O 4 GM in IV Premix 1 EACH IV ONE (13:40)
[2016-07-14] MEDS ORDERED: POTA10TA38 PO (13:43)
[2016-07-14] MEDS ORDERED: THIA100T64 PO (13:43)
[2016-07-14] MEDS ORDERED: PREN1TAB25 PO (13:43)
[2016-07-14] MEDS ORDERED: Acetaminophen PO (13:43)
[2016-07-14] MEDS ORDERED: Al Hydrox/Mg Hydrox/Simeth PO ×2 (13:43)
[2016-07-14] MEDS ORDERED: MAGN400T29 PO (13:43)
--- NOTE | 2016-07-14 15:00 | PCM.PNMED ---
Subjective Date of Service July 14, 2016 Subjective Patient to be confused but without complaints of chest pain, dyspnea, nausea or vomiting. She is mostly concerned about what she will be eating today. She is complaining of ankle pain and edema. Exam Vital Signs Vital Sign - Last Date Time Temp Pulse Resp B/P Pulse Ox O2 Delivery O2 Flow Rate FiO2 07/14/16 12:39 37.0 73 12 127/82 97 Room Air Intake and Output 07/13/16 07/13/16 07/14/16 Cumulative From/Thru 15:00 23:00 07:00 07/10/16 11:45 - 07/14/16 06:07 Intake Total 400 ml 1945 ml 200 ml 12762 ml Output Total 1950 ml 1002 ml 1450 ml 7102 ml Balance -1550 ml 943 ml -1250 ml 5753 ml Intake Oral 400 ml 800 ml 200 ml 2798 ml IV Total 1145 ml 66927 ml Output Urine Total 1950 ml 1000 ml 1450 ml 7100 ml Stool Total 2 ml 2 ml # Bowel Movements 0 1 1 Exam Gen.- A+ O 1-2 no apparent distress. Eyes- open conjunctiva clear, pupils equal nonicteric Mouth- oral mucosa moist, no exudate ENT- ears normal, nose normal Neck- supple/trach midline CVS- RRR no murmur or gallop perhaps 1+ pedal edema Lungs- CTA GI- NABS/NT soft Musc- moving 4 no obvious deformity Neuro- cranial nerves II through XII intact to gross examination, nonfocal Skin- warm and dry, no rashes/lesions/wounds noted Psych- pleasant and appropriate, Lab and Diagnostics Result Diagram: 07/14/16 0444 07/14/16 0444 X-Rays, CTs and MRIs Date of Service: 07/10/16 1159 PROCEDURE: CT BRAIN WITHOUT CONTRAST ([id number]) INDICATIONS: AMS TECHNIQUE: Noncontrast 4.5 mm thick angled axial sections acquired from the foramen magnum to the vertex, with coronal reformats. COMPARISON: None. FINDINGS: Image quality: Excellent. CSF spaces: Basal cisterns are patent. No extra-axial fluid collections. The ventricles are symmetric in size and shape. Brain: No intracranial bleeds or masses. There is cerebral volume loss for age , with resultant ventricular and sulcal prominence. There are periventricular and deep white matter chronic small vessel ischemic changes. There is intracranial internal carotid artery atherosclerosis. Skull and face: Calvarium and visualized facial bones appear intact, without suspicious lesions. Sinuses: Visualized sinuses and mastoids are clear. IMPRESSION: No acute intracranial abnormality. Dictated by: Charbel Alcantar M.D. on 07/10/2016 at 12:30 Approved by: Charbel Alcantar M.D. on 07/10/2016 at 12:30 Date of Service: 07/10/16 1159 PROCEDURE: X-RAY CHEST ONE VIEW, PORTABLE ([id number]) INDICATIONS: weakness TECHNIQUE: One view of the chest was acquired. COMPARISON: None. FINDINGS: Surgical changes and devices: None. Lungs and pleura: No pleural effusions or pneumothorax. Lungs are clear. Mediastinum: Mediastinal contours appear normal. Heart size is normal. Bones and chest wall: No suspicious bony lesions. Overlying soft tissues appear unremarkable. IMPRESSION: No acute process. Dictated by: Charbel Alcantar M.D. on 07/10/2016 at 13:20 Approved by: Charbel Alcantar M.D. on 07/10/2016 at 13:21 Additional Diagnostics hemocult reported to be + in er Assessment & Plan 66-year-old female admitted 07/10 with encephalopathy after being found on floor covered in stool likely related to acute/chronic alcohol use. She has been pleasantly disoriented a early she is lucid more so during the day but kind of hit and miss an as evening progresses becomes more confused. Perhaps over time as patient is abstinent from alcohol her mentation will improve and she may be able to return to independent living. Metabolic encephalopthy, POA. We will patient is improved her cognition is in such that she should be living independently looking for placement 07/15. Ordering cognitive evaluation as long as she is here. Alcohol dependence, POA. No evidence of withdrawal today. Continue CIWA protocol. Volume depletion, POA. Stopping IV fluids 07/14 Urine retention. She did have a Botello placed at time of admit Mrs. removed . Plan for bladder training with straight cath as needed. We will need to follow us make sure patient is taking enough liquids orally and eating, she is probably medically stable. It appears patient will have placement perhaps 07/15. VTE Prophylaxis: Sub-Q Enoxaparin VTE Mechanical Devices: Intermittant Pneumatic CD Resuscitation Status: CPR: Attempt Resuscitation Davy Julien MD July 14, 2016 15:00
--- NOTE | 2016-07-14 15:27 | PCM.DC.MED ---
Discharge Summary Date of Service July 14, 2016 Dates of Hospitalization Date of Hospital Admission July 10, 2016 at 15:07 Date of Discharge: July 14, 2016 Providers: Admitting Physician: Augie Campuzano MD Primary Care Physician: Cori Attending Physician: Augie Campuzano MD Diagnosis at Time of Discharge Diagnosis at Time of Discharge encephalopathy Consultations Psychiatry, thank you Dr. Espinoza Procedures XRay, CTs & MRIs Date of Service: 07/10/16 1159 PROCEDURE: CT BRAIN WITHOUT CONTRAST ([id number]) INDICATIONS: AMS TECHNIQUE: Noncontrast 4.5 mm thick angled axial sections acquired from the foramen magnum to the vertex, with coronal reformats. COMPARISON: None. FINDINGS: Image quality: Excellent. CSF spaces: Basal cisterns are patent. No extra-axial fluid collections. The ventricles are symmetric in size and shape. Brain: No intracranial bleeds or masses. There is cerebral volume loss for age , with resultant ventricular and sulcal prominence. There are periventricular and deep white matter chronic small vessel ischemic changes. There is intracranial internal carotid artery atherosclerosis. Skull and face: Calvarium and visualized facial bones appear intact, without suspicious lesions. Sinuses: Visualized sinuses and mastoids are clear. IMPRESSION: No acute intracranial abnormality. Dictated by: Charbel Alcantar M.D. on 07/10/2016 at 12:30 Approved by: Charbel Alcantar M.D. on 07/10/2016 at 12:30 Date of Service: 07/10/16 1157 PROCEDURE: X-RAY CHEST ONE VIEW, PORTABLE ([id number]) INDICATIONS: weakness TECHNIQUE: One view of the chest was acquired. COMPARISON: None. FINDINGS: Surgical changes and devices: None. Lungs and pleura: No pleural effusions or pneumothorax. Lungs are clear. Mediastinum: Mediastinal contours appear normal. Heart size is normal. Bones and chest wall: No suspicious bony lesions. Overlying soft tissues appear unremarkable. IMPRESSION: No acute process. Dictated by: Charbel Alcantar M.D. on 07/10/2016 at 13:20 Approved by: Charbel Alcantar M.D. on 07/10/2016 at 13:21 Other Diagnostics hemocult reported to be + in er Brief History 66yo lady with no reported medical hx. sent to the emergency room 07/10 after neighbours called bc they were concerned about her. ems arrived to the house to find her crawling on the floor with feces around the floor. there was apparently minimal food in the house and eviction notices. She told the admitting physician she feels weak and fell 3 weeks ago and has b/l hip pain but can walk ok with a walker. she is not sure why she is here now. she is concerned about where her dog is. Hospital Course 66-year-old female admitted 07/10 with encephalopathy after being found on floor covered in stool likely related to acute/chronic alcohol use. She has been pleasantly disoriented a early she is lucid more so during the day but kind of hit and miss an as evening progresses becomes more confused. Perhaps over time as patient is abstinent from alcohol her mentation will improve and she may be able to return to independent living. Metabolic encephalopthy, POA. We will patient is improved her cognition is in such that she should be living independently looking for placement 07/15. Ordering cognitive evaluation as long as she is here. 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 CT of the head was unremarkable, TSH and B12 were normal during this hospitalization. Psychiatry consultation simply recommended perhaps starting SSRI antidepressant. Hypokalemia/hypomagnesemia-continue to monitor and replace as needed probably biweekly on date of discharge K was 2.9 and she received supplement, and magnesium was 1.4 continuing oral replacement. Alcohol dependence, POA. No evidence of withdrawal today. Volume depletion, POA. Stopping IV fluids 07/14 . Monitor patient's by mouth intake and verified that it is adequate. Urine retention. She did have a Botello placed at time of admit Mrs. removed . Plan for bladder training with straight cath as needed. We will need to follow us make sure patient is taking enough liquids orally and eating, she is probably medically stable. It appears patient will have placement perhaps 07/15. I met this patient on the date of discharge Flomax had been started 07/13 (but not continued) for urinary retention. I am not going to continue that I am just going to order straight cath and bladder training. She will need to have her magnesium and potassium checked 07/15, 07/18, 07/21 probably biweekly Monday and thereafter until he is stabilized/improved. I am discharging her on potassium and magnesium replacement. Additionally there was a suggestion and I do not think this is a bad idea the patient be started on antidepressant but this was not done prior to discharge. Exam Vital Signs (Last) Date Time Temp Pulse Resp B/P Pulse Ox O2 Delivery O2 Flow Rate FiO2 07/14/16 12:39 37.0 73 12 127/82 97 Room Air Exam Gen.- A+ O 1-2 no apparent distress. Eyes- open conjunctiva clear, pupils equal nonicteric Mouth- oral mucosa moist, no exudate ENT- ears normal, nose normal Neck- supple/trach midline CVS- RRR no murmur or gallop perhaps 1+ pedal edema Lungs- CTA GI- NABS/NT soft Musc- moving 4 no obvious deformity Neuro- cranial nerves II through XII intact to gross examination, nonfocal Skin- warm and dry, no rashes/lesions/wounds noted Psych- pleasant and appropriate, Test 07/10/16 12:33 07/10/16 12:45 07/10/16 13:00 07/11/16 02:15 Prothrombin Time 10.0sec (8.1-12.5) Prothromb Time International Ratio 0.94ratio Ammonia 37ug/dL (18-53) Total Creatine Kinase 54U/L (21-215) Procalcitonin 0.06ng/mL (0.00-0.08) Thyroid Stimulating Hormone (TSH) 0.972uIU/mL (0.450-4.500) Alcohols < 10mg/dL (0-10) Urine Color Lynda (YELLOW) Urine Appearance Clear (CLEAR,HAZY) Urine pH 6.0 (5.0-8.0) Urine Specific [place] 1.025 (1.003-1.035) Urine Protein Tracemg/dL (NEG,TRACE) Urine Glucose (UA) Negativemg/dL (NEGATIVE) Urine Ketones 40mg/dL (NEGATIVE) Urine Occult Blood Trace (NEGATIVE) Urine Nitrite Negative (NEGATIVE) Urine Bilirubin Negative (NEGATIVE) Urine Ictotest Negative (Negative) Urine Urobilinogen Normalmg/dL (NORMAL) Urine Leukocyte Esterase Negative (NEGATIVE) Urine RBC 0-2/hpf (0-2) Urine WBC 0-5/hpf (0-5) Urine Epithelial Cells Many/hpf (NONE-MOD) Urine Crystals None seen (NONE SEEN) Urine Bacteria Few/hpf (NONE-FEW) Urine Hyaline Casts 07/23/lpf (NONE) Urine Granular Casts None seen (NONE SEEN) Urine Waxy Casts None seen (NONE SEEN) Urine Red Blood Cell Casts None seen (NONE SEEN) Urine White Blood Cell Casts None seen (NONE SEEN) Urine Mucus Present (None Seen) Urine Trichomonas None seen (NONE SEEN) Urine Yeast None (NONE SEEN) Urinalysis Comment None Urine Culture Reflexed Not indicated Urine Opiates Screen Negative Urine Methadone Screen Negative Urine Barbiturates Screen Negative Urine Amphetamines Screen Negative Urine Benzodiazepines Screen Negative Urine Cocaine Metabolite Screen Negative Urine Cannabinoids Screen Negative Troponin T 0.010ug/L (0.0-0.011) Test 07/11/16 05:00 07/11/16 07:30 07/12/16 04:45 07/14/16 04:44 Hemoglobin A1c 5.3% (4.8-5.6) Lactic Acid Level 0.8mmol/L (0.4-2.0) Triglycerides Level 122mg/dL (0-149) Cholesterol Level 165mg/dL (100-199) LDL Cholesterol, Calculated 88.600mg/dL (0-99) VLDL Cholesterol 24.400mg/dL HDL Cholesterol 52mg/dL (>39) Cholesterol/HDL Ratio 3.17 (0.0-4.4) Vitamin B12 Level 647pg/mL (211-946) Folate > 19.9ng/mL (>3.0) Rapid Plasma Reagin Non reactive (Non Reactive) HIV (1&2) Ag and Ab, 4th Generation Non reactive (Non Reactive) Neutrophils (%) (Auto) 51.9% (40-74) Lymphocytes (%) (Auto) 38.2% (14-46) Monocytes (%) (Auto) 8.1% (4-12) Eosinophils (%) (Auto) 0.6% (0-5) Basophils (%) (Auto) 0.8% (0-3) Phosphorus Level 2.3mg/dL (2.5-4.9) White Blood Count 4.3th/mm3 (3.8-10.1) Red Blood Count 3.80mil/mm3 (3.90-5.20) Hemoglobin 12.9g/dL (12.0-15.6) Hematocrit 38.4% (35.0-46.0) Mean Corpuscular Volume 101.1fL (81-100) Mean Corpuscular Hemoglobin 33.9pg (27.0-35.0) Mean Corpuscular Hemoglobin Concent 33.6% (32.0-37.0) Red Cell Distribution Width 13.9% (12.3-15.4) Platelet Count 229bil/L (150-400) Sodium Level 141mEq/L (134-144) Potassium Level 2.9mEq/L (3.5-5.2) Chloride Level 101mEq/L (97-108) Carbon Dioxide Level 29mmol/L (18-29) Blood Urea Nitrogen 6mg/dL (8-27) Creatinine 0.34mg/dL (0.57-1.00) Estimat Glomerular Filtration Rate 274mL/min (>59) Glucose Level 99mg/dL (60-99) Calcium Level 8.9mg/dL (8.5-10.1) Magnesium Level 1.4mg/dL (1.6-2.6) Total Bilirubin 0.4mg/dL (0.0-1.2) Aspartate Amino Transf (AST/SGOT) 26U/L (0-50) Alanine Aminotransferase (ALT/SGPT) 29U/L (0-32) Alkaline Phosphatase 86U/L (25-165) Total Protein 4.5g/dL (6.4-8.4) Albumin 2.5g/dL (3.4-5.0) Discharge Medications Discharge Medications Albuterol Sulfate (Ventolin HFA Inhaler) 200 Puff/18 Gm Inhaler 2 INHALER PO DAILY (Reported) Famotidine (Famotidine) 20 Mg Tablet 20 MG PO DAILY (Reported) Magnesium Oxide (Magox 400) 400 Mg Tablet 400 MG PO BID Prescribed by: ARNEL WATTERS MD Potassium Chloride (Potassium Chloride) 10 Meq Tab.er.prt 10 MEQ PO BID Prescribed by: ARNEL WATTERS MD Vit#96/Ferrous Fum/FA ( Tablet) 1 Each Tablet 1 TABLET PO DAILY Prescribed by: ARNEL WATTERS MD Thiamine Mononitrate (Vitamin B-1) 100 Mg Tablet 100 MG PO DAILY Prescribed by: ARNEL WATTERS MD As needed ([Acetaminophen]) 325 MG TABLET 975 MG PO Q6H PRN PRN For Pain Prescribed by: ARNEL WATTERS MD ([Al Hydrox/Mg Hydrox/Simeth]) 30 ML SUSP 30 ML PO Q6H PRN PRN For Dyspepsia or Heartburn Prescribed by: ARNEL WATTERS MD ([Al Hydrox/Mg Hydrox/Simeth]) 30 ML SUSP 30 ML PO Q6 PRN PRN For Dyspepsia or Heartburn Prescribed by: ARNEL WATTERS MD Followup Plan Follow-up plan magnesium and potassium checked 07/15, 07/18, 07/21 probably biweekly Monday and Discharge Diet: No restrictions Discharge Activity: No restrictions Follow-up with PCP in: Other (facility provider within nbext 5days. Pt going to SNF) Provider: Augie Campuzano MD Follow-up in: Other (should call for follow-up on discharge from SNF) Time spent Greater than 30 minutes Attending Statement magnesium and potassium checked 07/15, 07/18, 07/21 probably biweekly Monday and Psychiatry also suggested she would probably benefit from an SSRI. copies to: Augie Campuzano MD, Andris E MD July 14, 2016 15:27
== END 2016-07-14 15:37 | DRG 57 ==
LOC: EDUNIT# 11:35 → EDBD 11:35 → SED 11:35 → OBSVTOIN 15:07 → OSC 15:07
PROVIDERS: ADMIT Family Medicine; ATTEND Family Medicine
DX: G31.2 Degeneration of nervous system due to alcohol (principal); E87.2 Acidosis; E86.0 Dehydration; F17.200 Nicotine dependence, unspecified, uncomplicated; E87.6 Hypokalemia; F10.20 Alcohol dependence, uncomplicated; M25.552 Pain in left hip; M25.551 Pain in right hip; R32 Unspecified urinary incontinence; F32.9 Major depressive disorder, single episode, unspecified; E83.42 Hypomagnesemia; R19.7 Diarrhea, unspecified; Y90.0 Blood alcohol level of less than 20 mg/100 ml